=== PATIENT | male | born 1950 | race Caucasian/White ===

== ENCOUNTER 2020-10-07 14:08 | Inpatient (IN) | payer OTHER ==
[~2020-10-07] VITALS: Ht 177.8 cm; Wt 54.3 kg
[2020-10-07 14:49] LABS: BASOPHILS ABSOLUTE AUTO 0.05 K/mm3 (0.00-0.23); BASOPHILS PERCENT AUTO 0 % (0-2); EOSINOPHILS ABSOLUTE AUTO 0.07 K/mm3 (0.00-0.68); EOSINOPHILS PERCENT AUTO 1 % (0-6); Hematocrit 32.7 % (37.0-53.0); IMMATURE GRAN ABSOLUTE AUTO 0.06 K/mm3 (0.00-0.10); IMMATURE GRAN PERCENT AUTO 1 % (0-1); LYMPHOCYTES ABSOLUTE AUTO 1.15 K/mm3 (0.84-5.20); LYMPHOCYTES PERCENT AUTO 10 % (21-46); MONOCYTES ABSOLUTE AUTO 1.12 K/mm3 (0.16-1.47); MONOCYTES PERCENT AUTO 10 % (4-13); Mean Corpuscular HGB 30.6 pg (26.0-34.0); Mean Corpuscular HGB Conc 33.6 g/dL (31.5-36.5); Mean Corpuscular Volume 91 fL (80-100); Mean Platelet Volume 10.8 fL (9.1-12.4); NEUTROPHILS ABSOLUTE AUTO 9.39 K/mm3 (1.96-9.15); NEUTROPHILS PERCENT AUTO 79 % (41-73); Platelet Count 503 K/mm3 (150-400); RDW Coefficient Variation 13.8 % (11.7-14.2); RDW Standard Deviation 46.5 fL (35.1-46.3); White Blood Cell Count 11.84 K/mm3 (4.00-11.30)
[2020-10-07 15:04] LABS: Albumin, Blood 2.9 g/dL (3.4-5.0); Albumin/Globulin Ratio 0.5 (0.8-1.8); Bilirubin, Total 0.4 mg/dL (0.1-1.0); Bun/Creatinine Ratio 14.2 (12.0-20.0); Calcium, Blood 9.4 mg/dL (8.5-10.1); Creatinine, Blood 2.46 mg/dL (0.60-1.20); Globulin, Blood 5.4 g/dL (2.2-4.0); Potassium, Blood 4.5 mmol/L (3.5-5.5); Total Protein, Blood 8.3 g/dL (6.4-8.2)
[2020-10-07 17:27] LABS: Source, Urine Clean Catch
[2020-10-07 17:34] LABS: Appearance, Urine Cloudy (Clear); Bilirubin, Urine Neg (Neg); Blood, Urine 5+ (Neg); Color, Urine Yellow (P-Yellow); Glucose Qualitative, Urine Neg (Neg); Ketones, Urine 2+ (Neg); Leukocyte Esterase, Urine 3+ (Neg); Nitrite, Urine Neg (Neg); Protein, Urine 3+ (Neg); Urobilinogen, Urine NORM (Normal); pH, Urine 6.5 (5.0-8.0)
[2020-10-07 18:07] LABS: Bacteria Many /hpf; Red Blood Cells, Urine 0-2 /hpf (0-2); Squamous Epithelial Cells Rare /hpf (Few); White Blood Cells, Urine 50-100 /hpf (0-5)
[2020-10-07] MEDS ORDERED: VENL75ER PO ×2 (19:26)
[2020-10-07] MEDS ORDERED: PANT40 PO ×2 (19:27)
[2020-10-07] MEDS ORDERED: GABA300 PO ×2 (19:27)
[2020-10-07] MEDS ORDERED: CYCL10 PO ×2 (19:27)
[2020-10-07] MEDS ORDERED: Ativan1 MG PO ×2 (19:27)
[2020-10-07] MEDS ORDERED: Vitamin B-121000 MCG PO ×2 (19:28)
[2020-10-07] MEDS ORDERED: VITAMIN D31000 UNI1 PO ×2 (19:28)
[2020-10-07] MEDS ORDERED: ALBU90OI6 INH ×2 (19:28)
[2020-10-08 05:10] LABS: BASOPHILS ABSOLUTE AUTO 0.04 K/mm3 (0.00-0.23); BASOPHILS PERCENT AUTO 0 % (0-2); EOSINOPHILS ABSOLUTE AUTO 0.12 K/mm3 (0.00-0.68); EOSINOPHILS PERCENT AUTO 1 % (0-6); Hematocrit 26.3 % (37.0-53.0); Hemoglobin 8.7 g/dL (13.5-17.5); IMMATURE GRAN ABSOLUTE AUTO 0.05 K/mm3 (0.00-0.10); IMMATURE GRAN PERCENT AUTO 1 % (0-1); LYMPHOCYTES ABSOLUTE AUTO 1.01 K/mm3 (0.84-5.20); LYMPHOCYTES PERCENT AUTO 10 % (21-46); MONOCYTES ABSOLUTE AUTO 1.15 K/mm3 (0.16-1.47); MONOCYTES PERCENT AUTO 12 % (4-13); Mean Corpuscular HGB 30.1 pg (26.0-34.0); Mean Corpuscular HGB Conc 33.1 g/dL (31.5-36.5); Mean Corpuscular Volume 91 fL (80-100); Mean Platelet Volume 10.9 fL (9.1-12.4); NEUTROPHILS ABSOLUTE AUTO 7.42 K/mm3 (1.96-9.15); NEUTROPHILS PERCENT AUTO 76 % (41-73); Platelet Count 416 K/mm3 (150-400); RDW Coefficient Variation 13.9 % (11.7-14.2); RDW Standard Deviation 46.5 fL (35.1-46.3); Red Blood Cell Count 2.89 M/mm3 (4.30-5.90); White Blood Cell Count 9.79 K/mm3 (4.00-11.30)
[2020-10-08 05:33] LABS: Albumin, Blood 2.1 g/dL (3.4-5.0); Albumin/Globulin Ratio 0.5 (0.8-1.8); Bilirubin, Total 0.3 mg/dL (0.1-1.0); Bun/Creatinine Ratio 14.7 (12.0-20.0); Calcium, Blood 7.9 mg/dL (8.5-10.1); Creatinine, Blood 2.04 mg/dL (0.60-1.20); Globulin, Blood 4.3 g/dL (2.2-4.0); Potassium, Blood 4.2 mmol/L (3.5-5.5); Total Protein, Blood 6.4 g/dL (6.4-8.2)
--- NOTE | 2020-10-08 06:01 | NUR ---
SHIFT SUMMARY PT WAS A NEW ADMIT DURING THE NIGHT, ARRIVING ON THE FLOOR AT 2145. HE WAS ADMITTED FOR ACUTE RENAL FAILURE AND UTI. HE IS A&O X 4, SBA TO THE BATHROOM. PT HAS A CHRONIC UROSTOMY, PATENT AND DRAINING DARK YELLOW URINE. NO COMPLAINTS OF ACUTE PAIN, NAUSEA OR SOB. VITAL SIGNS STABLE. TELE SHOWED NSR IN THE 80S. PT RECEIVING NS @ 125 ML/HR. NO ACUTE CHANGES IN PT CONDITION NOTED SINCE ARRIVAL ON THE FLOOR. WILL CONTINUE TO MONITOR AND TREAT PER EMAR UNTIL HAND OFF TO DAY SHIFT RN.
--- NOTE | 2020-10-08 14:19 | NUR ---
SPOKE WITH DAUGHTER IN [place] ON THE PHONE WITH PERMISSION FROM THE PT [phone] SHE CAN BRING THE PT HOME IF DC'D TOMORROW BEFORE 4PM, OTHERWISE SHE WILL BE OUT OF TOWN AND [place] [facility] WILL NEED TO BE ARRANGED
--- NOTE | 2020-10-08 17:10 | NUR ---
SUMMARY PT RESTING QUIETLY IN BED, WAKES EASILY, UP INDEPENDENTLY IN THE ROOM, PT HAS WORKED WITH PT/OT TODAY, THEY HAVE NO FURTHER RECOMMENDATIONS FOR FOLLOW UP, PT HAS BEEN PLEASANT AND COOPERATIVE WITH CARE, MED PER EMAR FOR C/O PAIN WITH GOOD RESULTS, PT MANAGING HIS OWN UROSTOMY, NO COMPLAINTS, VSS, WILL CONTINUE TO MONITOR
--- NOTE | 2020-10-09 05:10 | NUR ---
SHIFT SUMMARY PT IS A 70 Y/O MALE, ADMITTED FOR ACUTE RENAL FAILURE. HE IS A&O X 4, SBA/IND IN THE ROOM. PT WAS MEDICATED FOR FLANK PAIN WITH PRN NORCO. NO C/O NAUSEA OR SOB. VITAL SIGNS STABLE. NO ACUTE CHANGES IN PT CONDITION NOTED DURING THE NIGHT. WILL CONTINUE TO MONITOR AND TREAT PER EMAR UNTIL HAND OFF TO DAY SHIFT RN.
[2020-10-09 09:28] LABS: BASOPHILS ABSOLUTE AUTO 0.02 K/mm3 (0.00-0.23); BASOPHILS PERCENT AUTO 0 % (0-2); EOSINOPHILS ABSOLUTE AUTO 0.15 K/mm3 (0.00-0.68); EOSINOPHILS PERCENT AUTO 2 % (0-6); Hematocrit 28.8 % (37.0-53.0); Hemoglobin 9.6 g/dL (13.5-17.5); IMMATURE GRAN ABSOLUTE AUTO 0.03 K/mm3 (0.00-0.10); IMMATURE GRAN PERCENT AUTO 0 % (0-1); LYMPHOCYTES PERCENT AUTO 6 % (21-46); MONOCYTES ABSOLUTE AUTO 0.91 K/mm3 (0.16-1.47); MONOCYTES PERCENT AUTO 10 % (4-13); Mean Corpuscular HGB 30.2 pg (26.0-34.0); Mean Corpuscular HGB Conc 33.3 g/dL (31.5-36.5); Mean Corpuscular Volume 91 fL (80-100); Mean Platelet Volume 10.4 fL (9.1-12.4); NEUTROPHILS PERCENT AUTO 82 % (41-73); Platelet Count 476 K/mm3 (150-400); RDW Coefficient Variation 13.8 % (11.7-14.2); RDW Standard Deviation 46.3 fL (35.1-46.3); Red Blood Cell Count 3.18 M/mm3 (4.30-5.90); White Blood Cell Count 9.51 K/mm3 (4.00-11.30)
[2020-10-09 09:43] LABS: Bun/Creatinine Ratio 11.7 (12.0-20.0); Calcium, Blood 8.6 mg/dL (8.5-10.1); Creatinine, Blood 1.97 mg/dL (0.60-1.20); Potassium, Blood 4.1 mmol/L (3.5-5.5)
--- NOTE | 2020-10-09 17:30 | NUR ---
SHIFT SUMMARY PT IS AOX4. PT MEDICATED FOR PAIN X2. PT DENIES SOB, N/V. PT IS INDEPENDENT IN ROOM. PT APPETITE IS GOOD. NO PROCEDURES DONE THIS SHIFT. PT DID NOT HAVE VISITORS TODAY. PLAN IS FOR DC TOMORROW AND TRANSPORTATION WILL NEED TO BE ARRANGED FOR PT. PT HAD BP OF 97/63 THIS LATON[place] AND THIS RN RECEIVED PERMISSION FROM DR. KCOH TO CONTINUE TO ADMINISTER PAIN MEDICATION, THEN RECHECK BP ONE HOUR LATER. THIS RN WILL MONITOR PT STATUS. PT IS IN BED, CALL LIGHT IN REACH, BED IN LOW POSITION.
--- NOTE | 2020-10-10 06:42 | NUR ---
SHIFT SUMMARY PATIENT ALERT AND ORIENTED. WAS MEDICATED PER EMAR FOR PAIN. NO COMPLAINTS OF SHORTNESS OF BREATH. PATIENT SLEPT WELL OVERNIGHT. NO ACUTE ISSUES NOTED. BED IN LOWEST POSITION WITH WHEELS LOCKED. IV PATENT AND FLUSHED. CALL LIGHT WITHIN REACH. REPORT GIVEN TO ONCOMING RN.
[2020-10-10 08:21] LABS: Bun/Creatinine Ratio 10.9 (12.0-20.0); Calcium, Blood 8.6 mg/dL (8.5-10.1); Creatinine, Blood 1.75 mg/dL (0.60-1.20); Potassium, Blood 3.9 mmol/L (3.5-5.5)
--- NOTE | 2020-10-10 13:59 | NUR ---
PATIENT AWARE NEEDS TO F/U WITH PCP ABOUT LYMPH NODE BACK BY RT KIDNEY. NO CHANGES IN MEDS. REVIEW MEDS. ANSWE ALL QUESTIONS. PATIENT VERBALIZES UNDERSTANDING. IV D'C WITH NO SWELLING OR BRUISING TO AREA. WILL CALL TAXI FOR PATIENT.
== END 2020-10-10 14:08 | disposition home or self-care (01) | DRG 683 ==
LOC: ER 14:08 → MEDS 20:26
PROVIDERS: Family Medicine; Hospitalist; Physician Assistant; ADMIT Internal Medicine
DX: N17.9 Acute kidney failure, unspecified (principal); N39.0 Urinary tract infection, site not specified; E87.1 Hypo-osmolality and hyponatremia; Z68.1 Body mass index [BMI] 19.9 or less, adult; R64 Cachexia; B96.1 Klebsiella pneumoniae [K. pneumoniae] as the cause of diseases classified elsewhere; E86.0 Dehydration; N18.30 Chronic kidney disease, stage 3 unspecified; R19.7 Diarrhea, unspecified; R59.0 Localized enlarged lymph nodes; M54.5 Low back pain; G89.29 Other chronic pain; F43.12 Post-traumatic stress disorder, chronic; F41.9 Anxiety disorder, unspecified; F32.9 Major depressive disorder, single episode, unspecified; G62.9 Polyneuropathy, unspecified; Z88.0 Allergy status to penicillin; Z79.899 Other long term (current) drug therapy; Z87.11 Personal history of peptic ulcer disease; Z85.51 Personal history of malignant neoplasm of bladder; Z85.46 Personal history of malignant neoplasm of prostate; Z85.72 Personal history of non-Hodgkin lymphomas; Z93.6 Other artificial openings of urinary tract status
CPT/HCPCS: 36415; 74176; 80048; 80053; 81001; 83690; 83930; 84295; 85025; 87077; 87086; 87186; 94760; 96365; 96375; 97165; 97530; 99285-25; A9270; G0480; J0696; J1650; J3010; J7030

== ENCOUNTER → 2020-10-15 | Outpatient (CLI) | payer OTHER, MEDICARE ==
[~2020-10-15] MED LIST: ALBU90OI6 INH; Ativan1 MG PO; CYCL10 PO; GABA300 PO; PANT40 PO; VENL75ER PO; VITAMIN D31000 UNI1 PO; Vitamin B-121000 MCG PO
[2020-10-16 10:48] LABS: Adenovirus F 40/41 Not Detected (NOT DETECT); Astrovirus Not Detected (NOT DETECT); Campylobacter Sp Not Detected (NOT DETECT); Cryptosporidium Not Detected (NOT DETECT); Cyclospora Cayetanensis Not Detected (NOT DETECT); E. Coli O157 Not Detected (NOT DETECT); Entamoeba Histolytica Not Detected (NOT DETECT); Enteroaggregative E. coli-EAEC Not Detected (NOT DETECT); Enteropathogenic E. coli-EPEC Not Detected (NOT DETECT); Enterotoxigenic E. coli-ETEC Not Detected (NOT DETECT); Giardia Lamblia Not Detected (NOT DETECT); Norovirus GI/GII Not Detected (NOT DETECT); Plesiomonas Shigelloides Not Detected (NOT DETECT); Rotavirus A Not Detected (NOT DETECT); Salmonella Sp Not Detected (NOT DETECT); Sapovirus Not Detected (NOT DETECT); Shiga Toxin-prod E. coli-STEC Not Detected (NOT DETECT); Shigella/Enteroin E. coli-EIEC Not Detected (NOT DETECT); Vibrio Cholerae Not Detected (NOT DETECT); Vibrio Sp Not Detected (NOT DETECT); Yersinia Enterocolitica Not Detected (NOT DETECT)
== END | disposition home or self-care (01) ==
LOC: LAB SHORT 07:52
PROVIDERS: Nurse Practitioner Family
DX: R19.7 Diarrhea, unspecified (principal)
CPT/HCPCS: 0097U; 83993

== ENCOUNTER 2020-11-29 17:31 | Inpatient (IN) | payer OTHER, MEDICARE ==
[~2020-11-29] VITALS: Ht 177.8 cm; Wt 47.2 kg
[2020-11-29] MEDS ORDERED: GABA600 PO (17:46)
[2020-11-29 19:01] LABS: Albumin, Blood 3.8 g/dL (3.4-5.0); Albumin/Globulin Ratio 0.7 (0.8-1.8); Bilirubin, Total 0.4 mg/dL (0.1-1.0); Calcium, Blood 10.6 mg/dL (8.5-10.1); Creatinine, Blood 3.35 mg/dL (0.60-1.20); Globulin, Blood 5.3 g/dL (2.2-4.0); Potassium, Blood 3.5 mmol/L (3.5-5.5); Total Protein, Blood 9.1 g/dL (6.4-8.2)
[2020-11-29 19:07] LABS: BASOPHILS ABSOLUTE AUTO 0.05 K/mm3 (0.00-0.23); BASOPHILS PERCENT AUTO 0 % (0-2); EOSINOPHILS ABSOLUTE AUTO 0.09 K/mm3 (0.00-0.68); EOSINOPHILS PERCENT AUTO 1 % (0-6); Hematocrit 38.5 % (37.0-53.0); Hemoglobin 12.5 g/dL (13.5-17.5); IMMATURE GRAN ABSOLUTE AUTO 0.12 K/mm3 (0.00-0.10); IMMATURE GRAN PERCENT AUTO 1 % (0-1); LYMPHOCYTES ABSOLUTE AUTO 1.79 K/mm3 (0.84-5.20); LYMPHOCYTES PERCENT AUTO 13 % (21-46); MONOCYTES ABSOLUTE AUTO 0.68 K/mm3 (0.16-1.47); MONOCYTES PERCENT AUTO 5 % (4-13); Mean Corpuscular HGB 29.7 pg (26.0-34.0); Mean Corpuscular HGB Conc 32.5 g/dL (31.5-36.5); Mean Corpuscular Volume 91 fL (80-100); Mean Platelet Volume 11.1 fL (9.1-12.4); NEUTROPHILS ABSOLUTE AUTO 11.49 K/mm3 (1.96-9.15); NEUTROPHILS PERCENT AUTO 81 % (41-73); Platelet Count 359 K/mm3 (150-400); RDW Coefficient Variation 16.1 % (11.7-14.2); Red Blood Cell Count 4.21 M/mm3 (4.30-5.90); White Blood Cell Count 14.22 K/mm3 (4.00-11.30)
[2020-11-29 19:13] LABS: Source, Urine Urostomy Bag
[2020-11-29 19:21] LABS: International Normalized Ratio 1.03; Prothrombin Time Results 11.1 Sec (9.7-11.5)
[2020-11-29 19:25] LABS: Appearance, Urine Cloudy (Clear); Bilirubin, Urine Neg (Neg); Blood, Urine 5+ (Neg); Color, Urine Red (P-Yellow); Glucose Qualitative, Urine Neg (Neg); Ketones, Urine 1+ (Neg); Leukocyte Esterase, Urine 3+ (Neg); Nitrite, Urine Neg (Neg); Protein, Urine 4+ (Neg); Specific Gravity, Urine 1.015 (1.003-1.022); Urobilinogen, Urine NORM (Normal)
[2020-11-29 19:32] LABS: Bacteria Many /hpf; Red Blood Cells, Urine TNTC /hpf (0-2); Squamous Epithelial Cells Not Seen /hpf (Few); Uric Acid Crystals Few /hpf; White Blood Cells, Urine 50-100 /hpf (0-5)
[2020-11-29 22:43] LABS: SARS-Cov-2 (COVID-19) PCR, MMC NEGATIVE (NEGATIVE)
--- NOTE | 2020-11-30 04:39 | NUR ---
SHIFT SUMMARY A/OX4, COOPERATIVE WITH CARE. NS RUNNING AT 125. CURRENTLY NPO, NG TUBE IN PLACE WITH 600ML DARK GREEN OUTPUT THIS SHIFT. MEDICATED FOR ANXIETY X1. VSS, NO ACUTE CHANGES AT THIS TIME. BED IN LOWEST POSITION WITH CALL LIGHT IN REACH. WILL CONTINUE TO MONITOR AND REPORT TO ONCOMING RN.
[2020-11-30 06:21] LABS: Bun/Creatinine Ratio 16.2 (12.0-20.0); Calcium, Blood 8.8 mg/dL (8.5-10.1); Creatinine, Blood 3.34 mg/dL (0.60-1.20); Potassium, Blood 3.4 mmol/L (3.5-5.5)
--- NOTE | 2020-11-30 18:14 | NUR ---
SUMMARY: PT ADMITTED FOR SBO. PT IS A/O, VSS. PT HAD X4 LIQ BM'S TODAY. NGT TO LIS AND PT ABLE TO TAKE CLEAR LIQ PER DR. DELEON. PT HAS DENIED N/V. PLAN IS FOR SMALL BOWEL FOLLOW THROUGH FOR TOMORROW. PT UPDATED ON PT STATUS TONIGHT. NO ACUTE SAFETY CONCERNS AT THIS TIME. WILL REPORT TO NOC RN
--- NOTE | 2020-11-30 19:40 | NUR ---
ASSUMED CARE. MELINDA IS PLEASANT AND COOPERATIVE WITH CARE. STATES PAIN IS BETTER THEN BEFORE, JUST HAD FENTANYL. REPORTS VERY DRY MOUTH TO WHERE MD STATES IT IS OK TO HAVE WATER. HE HAS GONE THROUGH SEVERAL GLASSES OF WATER AND ICE CHIPS. ENCOURAGED HIM TO SLOW DOWN IT CAN CAUSE PAIN IN HIS ABDOMIN. SUCTION IS LOW INTERMINTENT AND TENDS TO FILL UP THE CANISTER QUICKLY DUE TO HIM DRINKING WATER. UROSTOMY RLQ APPLIANCE IS INTACT, LITTLE URINE IN BAG CLEAR YELLOW. SWOLLEN LYMPH NODES MAKES A LINE DOWN BILATERAL INGUINEAL AREAS OF THE GROIN. STOPPED SUCTION AND PLACED TO GRAVITY PER ORDER. WILL SEE HOW HE TOLERATES THIS. NO NAUSEA AT THIS TIME. WILL CONTINUE TO MONITOR AND PROVIDE CARE. CALL LIGHT IS IN REACH.
--- NOTE | 2020-11-30 23:30 | NUR ---
PLACED PATIENT BACK ON LOW INTERMINTENT SUCTION HE STATES INCREASE IN PAIN. HE HAS DRANK A TOTAL OF 1000CC SINCE START OF SHIFT. ONLY IS ALLOWED TO HAVE A SMALL CUP THE REST OF THE NIGHT FOR HIM TO SIP ON. HE AGREED TO THIS.
[2020-12-01 05:26] LABS: BASOPHILS ABSOLUTE AUTO 0.02 K/mm3 (0.00-0.23); BASOPHILS PERCENT AUTO 0 % (0-2); EOSINOPHILS ABSOLUTE AUTO 0.14 K/mm3 (0.00-0.68); EOSINOPHILS PERCENT AUTO 2 % (0-6); Hematocrit 28.8 % (37.0-53.0); Hemoglobin 9.4 g/dL (13.5-17.5); IMMATURE GRAN ABSOLUTE AUTO 0.02 K/mm3 (0.00-0.10); IMMATURE GRAN PERCENT AUTO 0 % (0-1); LYMPHOCYTES ABSOLUTE AUTO 1.48 K/mm3 (0.84-5.20); LYMPHOCYTES PERCENT AUTO 19 % (21-46); MONOCYTES ABSOLUTE AUTO 0.59 K/mm3 (0.16-1.47); MONOCYTES PERCENT AUTO 8 % (4-13); Mean Corpuscular HGB 29.7 pg (26.0-34.0); Mean Corpuscular HGB Conc 32.6 g/dL (31.5-36.5); Mean Corpuscular Volume 91 fL (80-100); Mean Platelet Volume 11.5 fL (9.1-12.4); NEUTROPHILS ABSOLUTE AUTO 5.58 K/mm3 (1.96-9.15); NEUTROPHILS PERCENT AUTO 71 % (41-73); Platelet Count 305 K/mm3 (150-400); RDW Coefficient Variation 16.1 % (11.7-14.2); RDW Standard Deviation 53.1 fL (35.1-46.3); Red Blood Cell Count 3.17 M/mm3 (4.30-5.90); White Blood Cell Count 7.83 K/mm3 (4.00-11.30)
[2020-12-01 05:50] LABS: Albumin, Blood 2.7 g/dL (3.4-5.0); Anion Gap 11 mmol/L (6-16); Blood Urea Nitrogen 53 mg/dL (8-24); Bun/Creatinine Ratio 20.1 (12.0-20.0); CO2, Blood 28 mmol/L (21-32); Calcium, Blood 8.5 mg/dL (8.5-10.1); Chloride, Blood 98 mmol/L (98-108); Creatinine, Blood 2.64 mg/dL (0.60-1.20); Glomerular Filtration Rate 24 (60-); Glucose, Blood 72 mg/dL (70-99); Phosphorus, Blood 3.3 mg/dL (2.5-4.9); Potassium, Blood 3.1 mmol/L (3.5-5.5); Sodium, Blood 137 mmol/L (136-145)
--- NOTE | 2020-12-01 06:26 | NUR ---
SHIFT SUMMARY: PT HAS TOLERATED LARGE AMOUNTS OF WATER INTAKE AND ICE CHIPS T/O THE NIGHT. NGT WAS TO GRAVITY FOR SEVERAL HOURS BUT HE WAS STARTED TO GET SOME ABDOMINAL PAIN. RESTARTED LIS ABOUT AN HOUR LATER HAD TO EMPTY THE CANISTER IT WAS FULL. NO NAUSEA THIS AM, HE HAS HAD A TOTAL OF 1600CC OUTPUT IN THE CANISTER BUT HAS HAD ABOUT THAT MUCH FLUID IN. LYMPH NODES TO INTERGUINAL AREAS BILATERALLY ARE ENLARGED AND FIRM, DOES STATES SOME TENDERNESS. PAIN HAS BEEN MANAGED WITH CURRENT TREATMENT. VS WNL, AFEBRILE. IV SL. LOW URINE OUTPUT IN UROSTOMY. PATIENT HAS ONLY WATER THIS SHIFT. DOES STATES HE IS VERY HUNGRY AND HOPES HE CAN EAT THIS AM.
--- NOTE | 2020-12-01 17:08 | NUR ---
in to visit, stated nc is not needed so will remove as soon as pt is off of phone, call light in reach, returned from us on abdmn, fluid still infusing into rarm, no more pain, rm air, will continue to monitor and treat until share bsr with noc nurse and pt
--- NOTE | 2020-12-02 04:33 | NUR ---
SHIFT SMMARY: PT A&OX3 SLOWED PO INTAKE R/T NAUSEA/PAIN.PRN PAIN AND ZOFRAN GIVEN PT REPORTS DECREASED NAUSEA SMALL DECREASE IN PAIN TO 7/10W. PT PROVIDES SELF CARE FOR UROSTOMY AND CHANGES BAGS OUT AT HS. PT REQUEST PRN ATIVAN FOR PTSD @2300HRS. PT HAS RESTED COMFORTABLY T/O THE SHIFT RESPIRATIONS EVEN UNLABORED. DENIES PAIN AT THIS TIME. CALL LIGHT WITHIN REACH BED LOWERED.
[2020-12-02 04:57] LABS: BASOPHILS ABSOLUTE AUTO 0.01 K/mm3 (0.00-0.23); BASOPHILS PERCENT AUTO 0 % (0-2); EOSINOPHILS ABSOLUTE AUTO 0.19 K/mm3 (0.00-0.68); EOSINOPHILS PERCENT AUTO 2 % (0-6); Hematocrit 27.7 % (37.0-53.0); Hemoglobin 8.9 g/dL (13.5-17.5); IMMATURE GRAN ABSOLUTE AUTO 0.02 K/mm3 (0.00-0.10); IMMATURE GRAN PERCENT AUTO 0 % (0-1); LYMPHOCYTES ABSOLUTE AUTO 1.44 K/mm3 (0.84-5.20); LYMPHOCYTES PERCENT AUTO 18 % (21-46); MONOCYTES ABSOLUTE AUTO 0.73 K/mm3 (0.16-1.47); MONOCYTES PERCENT AUTO 9 % (4-13); Mean Corpuscular HGB 29.8 pg (26.0-34.0); Mean Corpuscular HGB Conc 32.1 g/dL (31.5-36.5); Mean Corpuscular Volume 93 fL (80-100); Mean Platelet Volume 10.9 fL (9.1-12.4); NEUTROPHILS ABSOLUTE AUTO 5.64 K/mm3 (1.96-9.15); NEUTROPHILS PERCENT AUTO 70 % (41-73); Platelet Count 282 K/mm3 (150-400); RDW Coefficient Variation 16.1 % (11.7-14.2); RDW Standard Deviation 54.4 fL (35.1-46.3); Red Blood Cell Count 2.99 M/mm3 (4.30-5.90); White Blood Cell Count 8.03 K/mm3 (4.00-11.30)
[2020-12-02 05:14] LABS: Albumin, Blood 2.5 g/dL (3.4-5.0); Anion Gap 7 mmol/L (6-16); Blood Urea Nitrogen 42 mg/dL (8-24); Bun/Creatinine Ratio 19.3 (12.0-20.0); CO2, Blood 28 mmol/L (21-32); Calcium, Blood 7.8 mg/dL (8.5-10.1); Chloride, Blood 101 mmol/L (98-108); Creatinine, Blood 2.18 mg/dL (0.60-1.20); Glomerular Filtration Rate 30 (60-); Glucose, Blood 79 mg/dL (70-99); Phosphorus, Blood 2.5 mg/dL (2.5-4.9); Sodium, Blood 136 mmol/L (136-145)
--- NOTE | 2020-12-02 17:30 | NUR ---
PT DIET ADVANCED TOLERATED FOR DINNER. TOLERATING CLEARS. PAIN MEDS GIVEN NEEDED. PASSING STOOL. CALL LIGHT WITHIN REACH, WCTM.
[2020-12-03 04:31] LABS: Hematocrit 29.2 % (37.0-53.0); Hemoglobin 9.4 g/dL (13.5-17.5); Mean Corpuscular HGB 29.7 pg (26.0-34.0); Mean Corpuscular HGB Conc 32.2 g/dL (31.5-36.5); Mean Corpuscular Volume 92 fL (80-100); Mean Platelet Volume 11.2 fL (9.1-12.4); Platelet Count 291 K/mm3 (150-400); RDW Coefficient Variation 16.1 % (11.7-14.2); RDW Standard Deviation 54.8 fL (35.1-46.3); Red Blood Cell Count 3.16 M/mm3 (4.30-5.90); White Blood Cell Count 7.28 K/mm3 (4.00-11.30)
--- NOTE | 2020-12-03 04:59 | NUR ---
SHIFT SUMMARY: PT A&0X3 HAS UROSTOMY WHICH PT [facility]. PT REQUESTED PRN ATIVAN AT HS AND HAS SLEPT T/O THE SHIFT. DENIES NAUSEA R/T OVEREATING AT DINNER. PT EXPRESS DESIRE TO SPEAK WITH PROVIDER ABOUT PTSD [place] EXPLORING MEDICATION OPTIONS. PT HAS CALL LIGHT WITHIN REACH AND USES APPROPERAITELY SELF AMBULATES IN ROOM REMINDED TO CALL STAFF FOR HELP. BED LOWERED.
[2020-12-03 05:00] LABS: Albumin, Blood 2.3 g/dL (3.4-5.0); Albumin/Globulin Ratio 0.6 (0.8-1.8); Bilirubin, Total 0.2 mg/dL (0.1-1.0); Bun/Creatinine Ratio 16.8 (12.0-20.0); Calcium, Blood 7.8 mg/dL (8.5-10.1); Creatinine, Blood 2.02 mg/dL (0.60-1.20); Magnesium, Blood 1.7 mg/dL (1.6-2.4); Percent Saturation 9.5 % (20.0-50.0); Potassium, Blood 3.3 mmol/L (3.5-5.5); Thyroid Stimulating Hormone 1.27 uIU/mL (0.360-4.800); Total Protein, Blood 6.3 g/dL (6.4-8.2)
--- NOTE | 2020-12-03 11:16 | NUR ---
PT DISCHARGE REVIEWED DC INSTRUCITONS WITH PT. PT VERB UNDERSTANDING OF DC INSTRUCTIONS, MEDICATIONS, FOLLOW UP, DIET AND ACTIVITY. PT CALLING FOR A RIDE HOME.
== END 2020-12-03 11:30 | disposition home or self-care (01) | DRG 853 ==
LOC: ER 17:31 → MEDS 21:59 → ERHOLD 21:59 → MEDS 22:52
PROVIDERS: Emergency Medicine; Family Medicine; Internal Medicine; ADMIT Internal Medicine
PROC: 07BJ3ZX Excision of Left Inguinal Lymphatic, Percutaneous Approach, Diagnostic (ICD-10-PCS; principal; 2020-12-01)
DX: A41.9 Sepsis, unspecified organism (principal); E43 Unspecified severe protein-calorie malnutrition; K56.600 Partial intestinal obstruction, unspecified as to cause; R64 Cachexia; N17.9 Acute kidney failure, unspecified; J44.1 Chronic obstructive pulmonary disease with (acute) exacerbation; E87.1 Hypo-osmolality and hyponatremia; Z68.1 Body mass index [BMI] 19.9 or less, adult; N39.0 Urinary tract infection, site not specified; C77.4 Secondary and unspecified malignant neoplasm of inguinal and lower limb lymph nodes; Z20.822 Contact with and (suspected) exposure to COVID-19; F41.9 Anxiety disorder, unspecified; E86.0 Dehydration; G89.29 Other chronic pain; M54.9 Dorsalgia, unspecified; R65.20 Severe sepsis without septic shock; G62.9 Polyneuropathy, unspecified; N18.30 Chronic kidney disease, stage 3 unspecified; D63.1 Anemia in chronic kidney disease; E87.6 Hypokalemia; R59.0 Localized enlarged lymph nodes; Z92.21 Personal history of antineoplastic chemotherapy; Z85.46 Personal history of malignant neoplasm of prostate; Z85.51 Personal history of malignant neoplasm of bladder; Z88.1 Allergy status to other antibiotic agents; Z79.899 Other long term (current) drug therapy; Z90.6 Acquired absence of other parts of urinary tract; Z93.6 Other artificial openings of urinary tract status; Z90.79 Acquired absence of other genital organ(s)
CPT/HCPCS: 36415; 38505; 74176; 74250; 76942; 80048; 80053; 80069; 81001; 82728; 83540; 83550; 83605; 83735; 84443; 85025; 85027; 85610; 87040; 87086; 88305; 88341; 88342; 96365; 96375; 96376; 99285-25; A9270; C9113; J0696; J1644; J2060; J2405; J3010; J3480; J7030; U0004